=== PATIENT | male | born 1995 | race Caucasian/White ===

== ENCOUNTER 2024-12-28 07:34 | Inpatient (IN) | payer SELFPAY ==
[~2024-12-28] VITALS: Ht 172.7 cm; Wt 76.7 kg
[2024-12-28 08:20] LABS: HEMATOCRIT. 45.5 % (42.0-52.0); HEMOGLOBIN. 14.9 g/dL (14.0-18.0); MEAN CORPUSCULAR HEMOGLOBIN 27.6 pg (28.0-32.0); MEAN CORPUSCULAR HGB CONC 32.7 g/dL (31.0-37.0); MEAN CORPUSCULAR VOLUME 84.4 fL (80.0-94.0); MEAN PLATELET VOLUME 8.4 fl (7.4-10.4); PLATELET 398 x1000/uL (130-400); RED BLOOD CELL COUNT 5.38 mill/uL (4.7-6.1); RED CELL DISTRIBUTION WIDTH 13.8 % (11.6-14.6); WHITE BLOOD COUNT 13.4 x1000/uL (4.5-11.0)
[2024-12-28 08:23] LABS: DIFFERENTIAL COMMENT 1
[2024-12-28 09:10] LABS: PLATELET ESTIMATE NORMAL
[2024-12-28 09:56] LABS: CHLORIDE 102 mEq/L (98-107); POTASSIUM 4.2 mEq/L (3.5-5.1); SODIUM 137 mEq/L (136-145)
[2024-12-28 09:57] LABS: CARBON DIOXIDE 19 mEq/L (21-32)
[2024-12-28 09:58] LABS: CALCIUM 9.4 mg/dL (8.7-10.4)
[2024-12-28 10:02] LABS: CREATININE 1.5 mg/dL (0.6-1.3); GLUCOSE 121 mg/dL (70-105); UREA NITROGEN BLOOD 11 mg/dL (9-23)
[2024-12-28] MEDS: PIPERACILLIN/TAZO 3.375G/50ML 50 ML IV ONE (10:02)
[2024-12-28] MEDS: SODIUM CHLORIDE 0.9% 1,000 ML IV ONE (10:02)
[2024-12-28 10:03] LABS: TROPONIN I HIGH SENSITIVITY 6 ng/L (3.0-53)
[2024-12-28] MEDS: ENOXAPARIN 80MG/0.8ML SYR SUBCUT ONE (10:04)
[2024-12-28] MEDS ORDERED: ONDANSETRON HCL 4MG/2ML INJ IV PRN (10:15)
[2024-12-28] MEDS ORDERED: DOCUSATE SODIUM 100MG CAPSULE PO PRN (10:15)
[2024-12-28] MEDS ORDERED: IPRATROPIUM/ALBUTEROL 0.5-3(2.5)MG/3ML NEB HHN PRN (10:15)
[2024-12-28] MEDS ORDERED: PIPERACILLIN/TAZOBACTAM 3.375 G in DEXTROSE 5% WATER 50 ML IV SCH (10:15)
[2024-12-28] MEDS ORDERED: CLONIDINE 0.1MG TABLET PO PRN (10:15)
[2024-12-28] MEDS ORDERED: DEXTROSE 50% WATER 50ML SYRINGE IV PRN (10:15)
[2024-12-28] MEDS ORDERED: MAGNESIUM/ALUMINUM HYDROXIDE/SIMETHICONE 30ML UDC PO PRN (10:15)
[2024-12-28] MEDS ORDERED: GUAIFENESIN 200MG/10ML SUGAR FREE UDC PO PRN (10:15)
[2024-12-28] MEDS: VANCOMYCIN 1G PREMIX 200 ML IV ONE (10:40)
[2024-12-28 10:51] LABS: PHOSPHORUS 3.2 mg/dL (2.5-4.9)
[2024-12-28] MEDS ORDERED: IOHEXOL-350 100 ML BOTTLE ONE (10:56)
[2024-12-28 11:04] LABS: LACTIC ACID 7.4 mmol/L (0.4-2.0)
[2024-12-28] MEDS: SODIUM CHLORIDE 0.9% (SEPSIS BOLUS) IV ONE (11:33)
[2024-12-28 12:08] VITALS: BP 122/76; PULSE 72; RESP 18; TEMP 36.4; O2SAT 98
[2024-12-28] MEDS: BLOOD SUGAR DIAGNOSTIC STRIP TEST SCH (12:20)
[2024-12-28 13:00] VITALS: BP 122/76; PULSE 72; RESP 18; TEMP 36.5
[2024-12-28 13:21] LABS: CLARITY URINE CLEAR (CLEAR); COLOR URINE YELLOW (YELLOW); GLUCOSE URINE NEGATIVE (NEGATIVE); KETONES URINE NEGATIVE (NEGATIVE); LEUKOCYTE ESTERASE URINE NEGATIVE (NEGATIVE); NITRITE URINE NEGATIVE (NEGATIVE); OCCULT BLOOD URINE NEGATIVE (NEGATIVE); PH URINE 6.5 (4.5-8.0); PROTEIN URINE NEGATIVE (NEGATIVE); SPECIFIC GRAVITY URINE 1.004 (1.005-1.030); UROBILINOGEN URINE 0.2 E.U./dL (0.2-1.0)
[2024-12-28 14:06] LABS: *AMPHETAMINES SCREEN URINE NEGATIVE (NEGATIVE); *BARBITURATES SCREEN URINE NEGATIVE (NEGATIVE); *BENZODIAZEPINES SCREEN URINE NEGATIVE (NEGATIVE); *COCAINE SCREEN URINE PRESUMPTIVE POSITIVE (NEGATIVE); METHADONE URINE SCREEN NEGATIVE (NEGATIVE); OPIATES URINE SCREEN NEGATIVE (NEGATIVE)
[2024-12-28 14:07] LABS: CANNABINOID URINE SCREEN NEGATIVE (NEGATIVE); ECSTASY MDMA SCREEN URINE NEGATIVE (NEGATIVE); PHENCYCLIDINE URINE SCREEN NEGATIVE (NEGATIVE)
[2024-12-28] MEDS: PIPERACILLIN/TAZO 3.375G/50ML 50 ML IV SCH (14:56)
[2024-12-28 15:15] LABS: PROTHROMBIN TIME 10.9 sec (9.6-11.0)
[2024-12-28 15:19] LABS: TROPONIN I HIGH SENSITIVITY 22 ng/L (3.0-53)
[2024-12-28 15:22] LABS: CREATINE KINASE 906 IU/L (46-171)
[2024-12-28 16:30] VITALS: BP 114/72; PULSE 62; RESP 18; TEMP 36.2; O2SAT 99
[2024-12-28] MEDS ORDERED: VANCOMYCIN 750MG/150ML (BAXTER) IV SCH (18:00)
[2024-12-28 20:00] VITALS: BP 135/33; PULSE 63; RESP 19; TEMP 37; O2SAT 96
[2024-12-28] MEDS: VANCOMYCIN 750MG PMX (XELLIA) 150 ML IV SCH (20:43)
[2024-12-28] MEDS: SODIUM CHLORIDE 0.45% 1,000 ML IV SCH (20:45)
[2024-12-28] MEDS: FAMOTIDINE 20MG TABLET PO SCH (20:45)
[2024-12-28] MEDS: ACETAMINOPHEN 325MG TABLET PO PRN (22:33)
[2024-12-29] VITALS: BP 100/66; PULSE 68; RESP 19; TEMP 37.1; O2SAT 96
[2024-12-29 02:23] LABS: CREATINE KINASE 859 IU/L (46-171)
[2024-12-29 02:24] LABS: TROPONIN I HIGH SENSITIVITY 34 ng/L (3.0-53)
[2024-12-29 04:00] VITALS: BP_SYST 100; BP_DIAS 57; BP_DIAS 66; PULSE 61; RESP 18; TEMP 36.7; O2SAT 97
[2024-12-29 08:00] VITALS: BP 108/63; PULSE 53; RESP 18; TEMP 36.7; O2SAT 97
[2024-12-29 11:27] LABS: BASOPHILS % 0.5 % (0.0-2.0); EOSINOPHILS % 1.8 % (0.0-5.0); HEMATOCRIT. 40.6 % (42.0-52.0); HEMOGLOBIN. 13.7 g/dL (14.0-18.0); LYMPHOCYTES % 24.7 % (20.0-50.0); MEAN CORPUSCULAR HEMOGLOBIN 28.6 pg (28.0-32.0); MEAN CORPUSCULAR HGB CONC 33.7 g/dL (31.0-37.0); MEAN CORPUSCULAR VOLUME 84.8 fL (80.0-94.0); MEAN PLATELET VOLUME 8.5 fl (7.4-10.4); MONOCYTES % 5.3 % (2.0-8.0); NEUTROPHILS % 67.7 % (40.0-76.0); PLATELET 315 x1000/uL (130-400); RED BLOOD CELL COUNT 4.79 mill/uL (4.7-6.1); RED CELL DISTRIBUTION WIDTH 13.7 % (11.6-14.6)
[2024-12-29 11:50] LABS: CHLORIDE 108 mEq/L (98-107); POTASSIUM 3.6 mEq/L (3.5-5.1); SODIUM 140 mEq/L (136-145)
[2024-12-29 11:51] LABS: CALCIUM 8.8 mg/dL (8.7-10.4); CARBON DIOXIDE 25 mEq/L (21-32)
[2024-12-29 11:56] LABS: CREATININE 1.2 mg/dL (0.6-1.3); GLUCOSE 156 mg/dL (70-105); TRIGLYCERIDE 151 mg/dL (0-150); UREA NITROGEN BLOOD 9 mg/dL (9-23)
[2024-12-29 11:57] LABS: LDL CHOLESTEROL 105 mg/dL (5-100)
[2024-12-29 11:58] LABS: CHOLESTEROL 152 mg/dL (<200); HDL CHOLESTEROL 26 mg/dL (>55)
[2024-12-29 12:00] VITALS: BP 101/49; PULSE 60; RESP 18; TEMP 36.3; O2SAT 98
[2024-12-29 12:00] LABS: T4 FREE 1.17 ng/dL (0.89-1.76); THYROID STIMULATING HORMONE 2.11 uIU/mL (0.55-4.78)
[2024-12-29] MEDS ORDERED: VANCOMYCIN 1.5GM/250ML 250 ML IV SCH (12:00)
[2024-12-29 12:05] VITALS: BP 101/49; PULSE 60; TEMP 101; O2SAT 98
== END 2024-12-29 12:00 | disposition home or self-care (01) | DRG 720 ==
LOC: ER 07:44 → 6WST 09:52 → EDBEDREQTM 09:53 → EDBEDREQ 09:53 → ENRESERV 10:10
PROVIDERS: ADMIT Internal Medicine; ATTEND Internal Medicine
DX: A41.9 Sepsis, unspecified organism (principal); G92.9 Unspecified toxic encephalopathy; E87.20 Acidosis, unspecified; N17.9 Acute kidney failure, unspecified; R56.9 Unspecified convulsions; R55 Syncope and collapse; E86.0 Dehydration; N18.9 Chronic kidney disease, unspecified; S09.93XA Unspecified injury of face, initial encounter; F17.210 Nicotine dependence, cigarettes, uncomplicated; F14.10 Cocaine abuse, uncomplicated; E66.9 Obesity, unspecified; Z68.25 Body mass index [BMI] 25.0-25.9, adult; S00.91XA Abrasion of unspecified part of head, initial encounter; X58.XXXA Exposure to other specified factors, initial encounter; Y93.89 Activity, other specified; Y92.89 Other specified places as the place of occurrence of the external cause; Y99.8 Other external cause status
CPT/HCPCS: 36415; 71045; 71275; 80048; 80061; 80305; 81003; 82550; 82962; 83036; 83605; 83735; 83880; 84100; 84145; 84439; 84443; 84484; 85025; 85379; 93005; 93880; 99291; J1650; J2543; J3370; J7030; Q9967